=== PATIENT | male | born 1965 | race African-American/Black ===

== ENCOUNTER 2018-07-30 08:02 | Day surgery (SDC) | payer OTHER ==
[~2018-07-30 08:02] MED LIST: PROPOFOL INJ 200 MG/20 ML VIAL IV ONE
[2018-07-30] MEDS ORDERED: PROPOFOL INJ 200 MG/20 ML VIAL IV ONE (08:55)
[2018-07-30 09:43] VITALS: BP 112/84
--- NOTE | 2018-07-30 14:21 | Operative Report ---
Operative Report DATE OF SURGERY: 07/30/18 Operative Report: The risks, benefits and alternatives of the procedure including the risk of bleeding, perforation requiring surgery are explained to the patient in detail and informed consent is obtained. The patient is taken back to the endoscopy suite and placed in the left, lateral decubital position. Timeout was called. Propofol medication is administered. Rectal examination is done which did not reveal any masses, tears or fissures. An Olympus videoscope was introduced into the patient's rectum. The scope was then carefully advanced all the way to the cecum. Cecum was identified by the usual anatomical landmarks including the ileocecal valve as well as appendiceal office. Photodocumentation was obtained. The scope was then sequentially pulled back via the various segments of the colon including the ascending colon, hepatic flexure, transverse colon, splenic flexure, descending colon and finally into the rectosigmoid portions of the colon. Retroflexion maneuvers performed. PREOPERATIVE DIAGNOSIS: Colorectal cancer screening POSTOPERATIVE DIAGNOSIS: Normal screening colonoscopy OPERATION: Diagnostic colonoscopy SURGEON: EDSON CALLE ANESTHESIA: LMAC TISSUE REMOVED OR ALTERED: As noted above COMPLICATIONS: None. ESTIMATED BLOOD LOSS: None. INTRAOPERATIVE FINDINGS: As noted above. PROCEDURE: Patient tolerated the procedure well. No immediate postprocedure complications are noted. Patient discharged in good condition. Discharge date 07/30/2018. Discharge diet: Regular. Discharge activity: Regular. 2-3-week follow-up to discuss findings. Patient is instructed call the office or proceed to the emergency room should there be any further proximal questions. 10-year surveillance colonoscopy.
== END 2018-07-30 09:30 | disposition home or self-care (01) ==
LOC: END 08:02
PROVIDERS: ATTEND Internal Medicine Gastroenterology
DX: Z12.11 Encounter for screening for malignant neoplasm of colon (principal); E11.9 Type 2 diabetes mellitus without complications; Z79.84 Long term (current) use of oral hypoglycemic drugs
CPT/HCPCS: 45378; 82962; J2704; 812

== ENCOUNTER 2019-11-03 11:09 | Emergency (ER) | payer OTHER ==
[2019-11-03] MEDS ORDERED: NORMAL SALINE 1000 ML 1,000 ML IV PRN (11:25)
--- NOTE | 2019-11-03 11:29 | ER Document Report ---
ED Medical Screen (RME) - General Chief Complaint: High Blood Sugar Stated Complaint: HIGH BLOOD SUGARG Time Seen by Provider: 11/03/19 11:23 Primary Care Provider: LUIS SÁNCHEZ PA-C [Primary Care Provider] - Follow up as needed Mode of Arrival: Ambulatory Information source: Patient Notes: 54-year-old male presented to ED for elevated blood sugar. They state they called the nurse practitioner for [facility] and they sent him over to the emergency room told him to drink a lot of fluids and come over here and get checked out. He states he has lost a lot of weight over the last 2 weeks he is on metformin thousand milligrams a day and he has been on this for an extended period of time and now he is always on the losing weight and his sugars are much higher. states his fasting sugar was 461 at home. She is having very frequent urination. I have greeted and performed a rapid initial assessment of this patient. A comprehensive ED assessment and evaluation of the patient, analysis of test results and completion of medical decision making process will be conducted by an additional ED providers. TRAVEL OUTSIDE OF THE [place] IN LAST 30 DAYS: No - Related Data Allergies/Adverse Reactions: No Known Allergies Allergy (Verified 11/03/19 11:23) Past Medical History - Past Medical History Cardiac Medical History: Denies: Hx Coronary Artery Disease, Hx Heart Attack, Hx Hypertension Pulmonary Medical History: Reports: Hx Pneumonia - 1984 Denies: Hx Asthma, Hx Bronchitis, Hx COPD Neurological Medical History: Denies: Hx Cerebrovascular Accident, Hx Seizures Musculoskeltal Medical History: Reports Hx Arthritis - GENERALIZED - Immunizations Hx Diphtheria, Pertussis, Tetanus Vaccination: Yes Physical Exam - Vital signs Vitals: Pulse Resp BP Pulse Ox 80 18 126/92 H 98 11/03/19 11:19 11/03/19 11:19 11/03/19 11:19 11/03/19 11:19 Course - Vital Signs Vital signs: Temp Pulse Resp BP Pulse Ox 80 18 126/92 H 98 11/03/19 11:19 11/03/19 11:19 11/03/19 11:19 11/03/19 11:19 Doctor's Discharge - Discharge Referrals: LUIS SÁNCHEZ PA-C [Primary Care Provider] - Follow up as needed
[2019-11-03 12:12] LABS: ABSOLUTE EOSINOPHILS # (AUTO) 0.3 10^3/uL (0.0-0.6); ABSOLUTE LYMPHOCYTES (AUTO) 1.3 10^3/uL (0.5-4.7); ABSOLUTE MONOCYTES (AUTO) 0.3 10^3/uL (0.1-1.4); ABSOLUTE NEUT (AUTO) 3.2 10^3/uL (1.7-8.2); BASOPHILS % (AUTO) 0.7 % (0-2); EOSINOPHILS % (AUTO) 5.8 % (0-6); HEMATOCRIT 46.3 % (37.9-51.0); HEMOGLOBIN 15.6 g/dL (13.5-17.0); LYMPHOCYTES % (AUTO) 26.3 % (13-45); MEAN CORPUSCULAR HEMOGLOBIN 29.6 pg (27.0-33.4); MEAN CORPUSCULAR HGB CONC 33.6 g/dL (32.0-36.0); MEAN CORPUSCULAR VOLUME 88 fl (80-97); MONOCYTES % (AUTO) 5.3 % (3-13); PLATELET COUNT 291 10^3/uL (150-450); RED BLOOD COUNT 5.26 10^6/uL (4.35-5.55); RED CELL DISTRIBUTION WIDTH 12.2 % (11.5-14.0); SEGMENTED NEUTROPHILS % (AUTO) 61.9 % (42-78); TOTAL CELLS COUNTED % (AUTO) 100 %; WHITE BLOOD COUNT 5.1 10^3/uL (4.0-10.5)
[2019-11-03 12:15] LABS: APPEARANCE,URINE CLEAR; BILIRUBIN,URINE NEGATIVE (NEGATIVE); COLOR,URINE STRAW; GLUCOSE, URINE >=500 mg/dL (NEGATIVE); KETONES,URINE 20 mg/dL (NEGATIVE); LEUKOCYTE ESTERASE,URINE NEGATIVE (NEGATIVE); NITRITE,URINE NEGATIVE (NEGATIVE); PROTEIN,URINE NEGATIVE (NEGATIVE); URINE SPECIFIC GRAVITY 1.032
[2019-11-03 12:20] LABS: ALBUMIN 4.7 g/dL (3.5-5.0); ALKALINE PHOSPHATASE 98 U/L (38-126); ANION GAP 10 (5-19); ASPARTATE AMINO TRANSFERASE 22 U/L (17-59); BLOOD UREA NITROGEN 12 mg/dL (7-20); CALCIUM 9.9 mg/dL (8.4-10.2); CARBON DIOXIDE 31 mmol/L (22-30); CHLORIDE 95 mmol/L (98-107); GLUCOSE 392 mg/dL (75-110); POTASSIUM 4.5 mmol/L (3.6-5.0); TOTAL PROTEIN 8.1 g/dL (6.3-8.2)
[2019-11-03 12:34] LABS: VENOUS BLOOD BASE EXCESS 0.9 mmol/L; VENOUS BLOOD HCO3 27.6 mmol/L (20-32); VENOUS BLOOD PCO2 52.3 mmHg (35-63); VENOUS BLOOD PH 7.34 (7.30-7.42)
[2019-11-03] MEDS ORDERED: INSULIN LISPRO 100 UNIT/ML 3 ML VIAL SUBCUT ONE (13:02)
[2019-11-03 13:53] VITALS: BP 137/97
--- NOTE | 2019-11-03 17:37 | ER Document Report ---
Entered by EMMANUEL PAREDES SCRIBE 11/03/19 1205 Acting as scribe for:BIB EDWARDS MD ED General - General Chief Complaint: High Blood Sugar Stated Complaint: HIGH BLOOD SUGARG Time Seen by Provider: 11/03/19 11:23 Primary Care Provider: LUIS SÁNCHEZ PA-C [Primary Care Provider] - Follow up tomorrow Mode of Arrival: Ambulatory Information source: Patient Notes: This 54 year old male patient presents to the emergency department today with high blood sugar. Patient states he has not checked his blood sugar for 8 months. Patient states he has been losing weight the past two weeks as well as constantly urinating. TRAVEL OUTSIDE OF THE [place] IN LAST 30 DAYS: No - Related Data Allergies/Adverse Reactions: No Known Allergies Allergy (Verified 11/03/19 11:23) Home Medications: Simvastatin, Metformin Past Medical History - General Information source: Patient - Social History Smoking Status: Former Smoker Cigarette use (# per day): No Frequency of alcohol use: Occasional Drug Abuse: None Family History: None Patient has suicidal ideation: No Patient has homicidal ideation: No Pulmonary Medical History: Reports: Hx Pneumonia - 1984 Endocrine Medical History: Reports: Hx Diabetes Mellitus Type 2 Musculoskeletal Medical History: Reports Hx Arthritis - GENERALIZED Past Surgical History: Reports: Hx Orthopedic Surgery - left elbow - Immunizations Hx Diphtheria, Pertussis, Tetanus Vaccination: Yes Hx Pneumococcal Vaccination: 09/18/13 Review of Systems - Review of Systems Constitutional: See HPI, Weight loss EENT: No symptoms reported Cardiovascular: No symptoms reported Respiratory: No symptoms reported Gastrointestinal: No symptoms reported Genitourinary: See HPI Male Genitourinary: No symptoms reported Musculoskeletal: No symptoms reported Skin: No symptoms reported Hematologic/Lymphatic: See HPI, Other - High blood sugar. Neurological/Psychological: No symptoms reported -: Yes All other systems reviewed and negative Physical Exam - Vital signs Vitals: Pulse Resp BP Pulse Ox 80 18 126/92 H 98 11/03/19 11:19 11/03/19 11:19 11/03/19 11:19 11/03/19 11:19 Interpretation: Normal - General General appearance: Appears well, Alert - HEENT Head: Normocephalic, Atraumatic Eyes: Normal Pupils: PERRL Pharynx: Normal - Respiratory Respiratory status: No respiratory distress Chest status: Nontender Breath sounds: Normal Chest palpation: Normal - Cardiovascular Rhythm: Regular Heart sounds: Normal auscultation Murmur: No - Abdominal Inspection: Normal Distension: No distension Bowel sounds: Normal Tenderness: Nontender - Extremities General upper extremity: Normal inspection. No: Edema General lower extremity: Normal inspection. No: Edema - Neurological Neuro grossly intact: Yes Cognition: Normal Orientation: AAOx4 - Psychological Associated symptoms: Normal affect, Normal mood - Skin Skin Temperature: Warm Skin Moisture: Dry Skin Color: Normal Course - Vital Signs Vital signs: Temp Pulse Resp BP Pulse Ox 97.4 F 80 18 126/92 H 99 11/03/19 11:27 11/03/19 11:19 11/03/19 11:19 11/03/19 11:19 11/03/19 11:53 - Laboratory Result Diagrams: 11/03/19 11:50 11/03/19 11:50 Laboratory results interpreted by me: 11/03/19 11/03/19 11/03/19 11:36 11:50 11:50 Sodium 135.9 L Chloride 95 L Carbon Dioxide 31 H Glucose 392 H POC Glucose 340 H Hemoglobin A1c % Urine Glucose (UA) >=500 H Urine Ketones 20 H Urine Urobilinogen 2.0 H 11/03/19 11:50 Sodium Chloride Carbon Dioxide Glucose POC Glucose Hemoglobin A1c % 13.3 H Urine Glucose (UA) Urine Ketones Urine Urobilinogen Discharge - Discharge Clinical Impression: Poorly controlled diabetes mellitus Hyperglycemia due to type 2 diabetes mellitus Qualifiers: Diabetes mellitus half-way insulin use: without half-way use Qualified Code(s): E11.65 - Type 2 diabetes mellitus with hyperglycemia Condition: Stable Disposition: HOME, SELF-CARE Additional Instructions: Your blood sugar today was 396. Your hemoglobin A1c was 13.3 We will add Lantus insulin to your medication regimen. You will take 10 units at bedtime. Be sure to drink plenty of fluids throughout the day today. Be sure to check your blood sugars at least 3 times daily for the next few days until your sugars have become regulated. If your blood sugar goes too low, be sure to eat something. Follow-up with your primary care provider tomorrow to review your lab work and the plan from today. RETURN TO THE EMERGENCY ROOM IF ANY NEW OR WORSENING SYMPTOMS. Prescriptions: Insulin Glargine,[email or web address] [Lantus Insulin 100 Unit/mL Insulin Pen] 10 unit SUBCUT QHS #10 ml Forms: Return to Work Referrals: LUIS SÁNCHEZ PA-C [Primary Care Provider] - Follow up tomorrow Scribe Attestation: 11/03/19 13:03 I personally performed the services described in the documentation, reviewed and edited the documentation which was dictated to the scribe in my presence, and it accurately records my words and actions. I personally performed the services described in the documentation, reviewed and edited the documentation which was dictated to the scribe in my presence, and it accurately records my words and actions.
--- NOTE | 2019-11-03 18:00 | EKG REPORT ---
SEVERITY:- ABNORMAL ECG - SINUS RHYTHM NONSPECIFIC T ABNORMALITIES, INFERIOR AND ANTERIOR LEADS : Confirmed by: Guero Lance MD 03-Nov-2019 17:59:52
== END 2019-11-03 13:56 | disposition home or self-care (01) ==
LOC: ER 11:09
DX: E11.65 Type 2 diabetes mellitus with hyperglycemia (principal); R35.0 Frequency of micturition; R63.4 Abnormal weight loss; Z87.891 Personal history of nicotine dependence; Z79.84 Long term (current) use of oral hypoglycemic drugs
CPT/HCPCS: 93005; 36415; 82962; 85025; 80053; 81001; 84484; 83036; 82803; 93010; J1815; J7030; 96360; 99285